=== PATIENT | male | born 1960 | race Caucasian/White ===

== ENCOUNTER 2022-08-06 08:18 | Outpatient (CLI) | payer OTHER, SELFPAY ==
[2022-08-06 16:20] LABS: Alanine Aminotransferase 44 U/L (6-50); Albumin Level 4.3 g/dL (3.5-5.1); Alkaline Phosphatase 66 U/L (38-126); Anion Gap 5 mmol/L (8-16); Aspartate Amino Transferase 41 U/L (17-59); Bilirubin,Total 0.9 mg/dL (0.2-1.3); Blood Urea Nitrogen 18 mg/dL (9-20); Calcium 8.8 mg/dL (8.4-10.2); Carbon Dioxide 31 mmol/L (22-30); Chloride 104 mmol/L (98-107); Cholesterol 156 mg/dL (0-200); Estimated Glomerular Filt Rate > 60; Glucose 81 mg/dL (65-110); HDL Direct 47 mg/dL; Potassium 3.9 mmol/L (3.4-5.0); Sodium 140 mmol/L (137-145); Triglycerides 98 mg/dL (<150)
[2022-08-06 16:48] LABS: Prostate Specific Antigen 0.6 ng/mL (< OR = 4.0)
[2022-08-06 20:24] LABS: LDL Cholesterol Direct 84 mg/dL
== END 2022-08-06 08:19 | disposition home or self-care (01) ==
LOC: ANHGOSHLAB 08:21
PROVIDERS: PCP Family Medicine; Visit Provider Family Medicine
DX: Z13.228 Encounter for screening for other metabolic disorders (principal); Z12.5 Encounter for screening for malignant neoplasm of prostate; Z13.220 Encounter for screening for lipoid disorders
CPT/HCPCS: 36415; 80053; 80061; 84153; G0103

== ENCOUNTER 2022-10-21 04:17 | Day surgery (SDC) | payer OTHER, SELFPAY ==
[2022-10-08 14:10] VITALS: BMI 32.8
[2022-10-21 07:44] VITALS: BP 134/88; PULSE 66; RESP 18; TEMP 36.1; O2SAT 97
[2022-10-21] MEDS: LACTATED RINGERS 1,000 ML 150 ML IV CONT (07:52)
--- NOTE | 2022-10-21 08:21 | WPDANESEPPF ---
Anes - Initial Pre Proc Eval Procedure: Operation Date: 10/21/22 09:15 Proposed Procedures p Screening Colonoscopy - Boby Yadav MD Date/Time: 10/21/22 08:21 Surgeon: Boby Yadav MD Pre Op Diagnosis: neoplasm screening Patient Data Age: 62 Gender: M Height: 1.73 m Weight: 93.6 kg Last Vital Signs Temp 36.1 C L 10/21/22 07:44 Pulse 66 10/21/22 07:44 Resp 18 10/21/22 07:44 BP 134/88 10/21/22 07:44 Pulse Ox 97 10/21/22 07:44 O2 Del Method Room Air 10/21/22 07:44 Allergies Allergy/AdvReac Type Severity Reaction Status Date / Time No Known Allergies Allergy Verified 10/21/22 07:43 Home Medications Medication Instructions Recorded Confirmed Type atorvastatin 10 mg tablet 10 mg PO DAILY #90 tabs 10/14/22 10/17/22 Rx diclofenac sodium 75 mg 75 mg PO BID #180 tabs 10/14/22 10/17/22 Rx tablet,delayed release triamcinolone acetonide 0.1 % 1 applic topical BID PRN rash #30 10/14/22 10/17/22 Rx topical cream grams Patient hx anesthesia problems: none Family hx anesthesia problems: none Results Review: All pre-operative results and documents have been reviewed as part of the pre-operative evaluation. [facility] Surgical History Surgical History History of right shoulder replacement (01/27/22) Family History Family History Mother , Age 75 Stroke No problems noted. Father , Age 66 [place] No problems noted. Grandparent , Unknown Age Stroke No problems noted. Grandparent , Unknown Age Black Lung No problems noted. Grandparent , Unknown Age Stroke. No problems noted. Grandparent , Unknown Age Black Lung No problems noted. Social History Social History Smoking status: Never smoker Alcohol intake: current Drinks per week: 1 Alcohol use details: SOCIAL Substance use: never Substance use type: does not use Lack of Transportation: No Lack of Food: Never True Current Housing: I Have Housing Concerned About Future Housing: No Difficulty Paying Gas/Electric Bills: No Difficulty Paying for Meds: No Currently Unemployed: No Education: High School Diploma/GED Difficulty w/ Childcare or Family Care: No Living arrangements: alone Gender identity (if verbalized by the patient): Male Spiritual care concerns: No Anes - Eval Final PreProcedure Day of Procedure 10/21/22 08:21 Patient weight: obese Heart: regular rate and rhythm Lungs: clear to auscultation Airway: Mallampati scale class II Neurological: alert and oriented Last oral intake: >/= 8 hours ASA classification: III Emergent: no Anesthetic plan: proceed Anesthesia type and monitoring: general GIVS and standard monitoring Results Review: All pre-operative results and documents have been reviewed as part of the pre-operative evaluation. Informed Consent: The patient's anesthetic plan and its attendant risks and benefits were discussed with the patient/family/POA. Questions were solicited and answers provided to the satisfaction of the patient/family/POA.
--- NOTE | 2022-10-21 08:28 | PM.HPGS ---
History of Present Illness History of Present Illness Consent: Risks, benefits, and alternatives have been discussed and questions answered. Patient agrees to proceed with procedure. Chief complaint: neoplasm screening Narrative: Gama Cueva is a 62 year old male Presents for screening colonoscopy. Patient's current weight appetite and bowel movements are normal. Patient denies abdominal pain. He has had no bleeding. Family history is noncontributory. Review of Systems Review of Systems: Review of systems noncontributory. [facility]LY [facility], [facility] Surgical History Surgical History History of right shoulder replacement (01/27/22) Family History Family History Mother , Age 75 Stroke No problems noted. Father , Age 66 [place] No problems noted. Grandparent , Unknown Age Stroke No problems noted. Grandparent , Unknown Age Black Lung No problems noted. Grandparent , Unknown Age Stroke. No problems noted. Grandparent , Unknown Age Black Lung No problems noted. Social History Social History Smoking status: Never smoker Alcohol intake: current Drinks per week: 1 Alcohol use details: SOCIAL Substance use: never Substance use type: does not use Lack of Transportation: No Lack of Food: Never True Current Housing: I Have Housing Concerned About Future Housing: No Difficulty Paying Gas/Electric Bills: No Difficulty Paying for Meds: No Currently Unemployed: No Education: High School Diploma/GED Difficulty w/ Childcare or Family Care: No Living arrangements: alone Gender identity (if verbalized by the patient): Male Spiritual care concerns: No Meds Home Medications and Allergies Home Medications Medication Instructions Recorded Confirmed Type atorvastatin 10 mg tablet 10 mg PO DAILY #90 tabs 10/14/22 10/17/22 Rx diclofenac sodium 75 mg 75 mg PO BID #180 tabs 10/14/22 10/17/22 Rx tablet,delayed release triamcinolone acetonide 0.1 % 1 applic topical BID PRN rash #30 10/14/22 10/17/22 Rx topical cream grams Allergies Allergy/AdvReac Type Severity Reaction Status Date / Time No Known Allergies Allergy Verified 10/21/22 07:43 Vital Signs Vital Signs - 24 hr 10/21/22 07:44 Temperature 97 F L Pulse Rate 66 Respiratory Rate 18 Blood Pressure 134/88 Pulse Oximetry 97 Oxygen Delivery Room Air Exam Narrative: Physical exam reveals patient to be alert. Vital signs stable. HEENT exam is unremarkable. Patient is anicteric. Lungs are clear to auscultation and percussion. Heart is without murmur or extra sounds. Abdomen bowel sounds are present soft nontender with no organomegaly. Digital external rectal exam is normal. Assessment and Plan Assessment and plan (1) Encounter for screening colonoscopy: Code(s): Z12.11 - Encounter for screening for malignant neoplasm of colon Status: Acute Assessment and Plan: Patient presents today for screening colonoscopy. He appears to be at average risk for colon polyps. Further recommendations may be given after endoscopy.
[2022-10-21 09:12] VITALS: BP 122/78; PULSE 57; RESP 20; O2SAT 99
[2022-10-21 09:22] VITALS: BP 121/81; PULSE 50; RESP 22; O2SAT 98
[2022-10-21 09:32] VITALS: BP 116/86; PULSE 54; RESP 21; O2SAT 100
== END 2022-10-21 09:36 | disposition home or self-care (01) ==
PROVIDERS: PCP Family Medicine; Visit Provider Internal Medicine Gastroenterology
PROC: 0DJD8ZZ Inspection of Lower Intestinal Tract, Via Natural or Artificial Opening Endoscopic (ICD-10-PCS; CPT 45378; principal; 2022-10-21 09:15)
DX: Z12.11 Encounter for screening for malignant neoplasm of colon (principal); K57.30 Diverticulosis of large intestine without perforation or abscess without bleeding; E66.9 Obesity, unspecified; Z68.31 Body mass index [BMI] 31.0-31.9, adult
CPT/HCPCS: 45378; J2704; J7120

== ENCOUNTER 2023-08-13 10:23 | Outpatient (CLI) | payer OTHER, SELFPAY ==
--- NOTE | ~2023-08-13 | XR_ITS ---
3 VIEWS LUMBAR SPINE Ordering provider: Bret Peterson DO History: . M25.552 - Pain in left hip WORSENING X 1 WEEK NKI . Comparison: None. FINDINGS: VERTEBRAL BODIES:Anterior loss of volume is seen in T11, T12 and L1. Otherwise, No visible acute fra cture or subluxation. Marginal osteophytes are seen. DISK SPACES: Narrowing of the disc spaces L1-L2, L3-L4 and L5-S1. Multilevel facet degenerative disea se. SOFT TISSUES: Normal. Phlebolith's are seen in the pelvis. Normal sacroiliac joints. Osteoarthritic changes in the left hip. IMPRESSION: No acute osseous abnormality lumbar spine. Anterior loss of volume in T11, T12 and L1 most likely chr onic. Consider follow up MRI lumbar spine if there is concern for spinal stenosis/neural impingement. Reviewed, dictated and finalized at location A. IMPRESSION: No acute osseous abnormality lumbar spine. Anterior loss of volume in T11, T12 and L1 most likely chronic. Consider follow up MRI lumbar spine if there is concern for spinal stenosis/adriana ral impingement.
--- NOTE | ~2023-08-13 | XR_ITS ---
AP lateral views of the left hip Clinical history: Pain Findings: No acute fracture or dislocation is seen. Osseous alignment is anatomic. There is moderate left hip joint degenerative change. Soft tissues are unremarkable. Impression: Moderate left hip joint degenerative change. Reviewed, dictated and finalized at location . Impression: Moderate left hip joint degenerative change.
== END 2023-08-13 10:24 | disposition home or self-care (01) ==
LOC: ANHIMG 10:24
PROVIDERS: PCP Family Medicine; Visit Provider Family Medicine
DX: M25.552 Pain in left hip (principal)
CPT/HCPCS: 72110; 73502

== ENCOUNTER 2023-08-31 08:08 | Outpatient (CLI) | payer OTHER, SELFPAY ==
[2023-08-31 09:06] LABS: Alanine Aminotransferase 24 U/L (6-50); Albumin Level 4.6 g/dL (3.5-5.1); Alkaline Phosphatase 71 U/L (38-126); Anion Gap 8 mmol/L (4-12); Aspartate Amino Transferase 27 U/L (17-59); Bilirubin,Total 0.9 mg/dL (0.2-1.3); Blood Urea Nitrogen 18 mg/dL (9-20); Carbon Dioxide 27 mmol/L (22-30); Chloride 105 mmol/L (98-107); Cholesterol 154 mg/dL (0-200); Estimated Glomerular Filt Rate > 60; Glucose 99 mg/dL (65-110); HDL Direct 44 mg/dL; Potassium 4.4 mmol/L (3.4-5.0); Sodium 140 mmol/L (137-145); Triglycerides 95 mg/dL (<150)
[2023-08-31 09:18] LABS: LDL Cholesterol Direct 85 mg/dL
[2023-08-31 09:35] LABS: Prostate Specific Antigen 0.7 ng/mL (< OR = 4.0)
== END 2023-08-31 08:09 | disposition home or self-care (01) ==
LOC: ANHLAB 08:09
PROVIDERS: PCP Family Medicine; Visit Provider Family Medicine
DX: Z13.228 Encounter for screening for other metabolic disorders (principal); Z12.5 Encounter for screening for malignant neoplasm of prostate; E78.00 Pure hypercholesterolemia, unspecified
CPT/HCPCS: 36415; 80053; 80061; 84153; G0103

== ENCOUNTER 2024-06-11 12:01 | Emergency (ER) | payer MEDICARE, OTHER, SELFPAY ==
--- NOTE | ~2024-06-11 | XR_ITS ---
EXAMINATION: XR chest 1V portable DATE: 06/11/2024 12:53 INDICATION: Endotracheal tube placement TECHNIQUE: 3 AP views of the chest were obtained. COMPARISON: None FINDINGS: Endotracheal tube tip 4.4 cm above the sylvia. Other airspace opacities at the left lower lung zone. Right lung remains clear. No pulmonary edema, pleural effusion or pneumothorax. The cardiomediastinal silhouette is normal. Right total shoulder arthroplasty. IMPRESSION: 1. Mild opacities in the left lower lung zone which could represent atelectasis, aspiration or pneumo gabriel. Reviewed, dictated and finalized at location A. IMPRESSION: 1. Mild opacities in the left lower lung zone which could represent atelectasis , aspiration or pneumonia.
--- NOTE | ~2024-06-11 | CT_ITS ---
EXAMINATION: 1. CT facial & cervical spine wo DATE: 06/11/2024 12:51 INDICATION: Trauma TECHNIQUE: 1. Computed tomography (CT) of the maxillofacial region and of the cervical spine were performed with out intravenous contrast. Sagittal and coronal reconstructions of both regions were obtained. Automat ed exposure control and iterative reconstruction technique were employed. The dose-length product was 681.00 mGy-cm. COMPARISON: None. FINDINGS: Maxillofacial CT: Anterior portion of the nasal bones and portion of the anterior cortez of the frontal sinuses are excl uded from the [id number] but aren't included on the subsequent CT of the head and thereby was not significantly limit evaluation. No maxillofacial fractures identified. Specifically the mandible, krystina al bones, zygomatic arches and cortez of the orbits and paranasal sinuses remain intact. Nasal septum is midline and also remains intact. There is prominent left periorbital and preseptal soft tissue swe lling. The left globe appears intact but there is proptosis with mild stranding in the intraorbital f at and asymmetric swelling of the left orbital muscles compared with the right.. The right orbit is n ormal. Moderate diffuse mucosal thickening throughout the paranasal sinuses. Mastoid air cells and mi ddle ear cavities are clear. Endotracheal tube in expected position extending into the pharynx with d istal tip along the floor of the thoracic inlet on the caudal-most cervical spine CT image. Large int raparenchymal hemorrhage in the right frontal and temporal lobes. See separate head CT report for fur ther detail. Cervical spine CT: Reversal of the normal cervical lordosis. 2 mm anterolisthesis C2 on C3 and C4 on C5. 3 mm retrolisth esis C6 on C7. Vertebral body heights are normal. No fractures. Severe disc height loss at C3-C4, C5- C6 and C6-C7. Severe uncovertebral osteoarthritis and posterior disc ossified complexes contribute to mild central canal stenosis at these levels. Mild disc height loss at the remaining cervical levels. Multilevel moderate to severe bilateral cervical facet osteoarthritis. There is moderate neural from stenosis bilaterally at C6-C7 and on the left at C3-C4 with mild neural from stenosis at the remaini ng cervical levels. Cervical soft tissues are unremarkable. IMPRESSION: 1. Prominent left periorbital soft tissue swelling with swelling of the orbital muscles and mild stra nding within the left orbit and proptosis of the intact appearing left globe. 2. No maxillofacial fractures identified. 3. Severe cervical spondylosis with no acute osseous abnormality. Reviewed, dictated and finalized at location A. IMPRESSION: 1. Prominent left periorbital soft tissue swelling with swelling of the orbital muscles and mild stranding within the left orbit and proptosis of the intact a ppearing left globe. 2. No maxillofacial fractures identified. 3. Severe cervical spondylosis with no acute osseous abnormality.
--- NOTE | ~2024-06-11 | CT_ITS ---
EXAMINATION: CT brain wo con DATE: 06/11/2024 12:49 INDICATION: Trauma TECHNIQUE: Computed tomography (CT) of the head was performed without intravenous contrast. Sagittal and coronal reconstructions were performed. The mA was adjusted according to patient size. Iterative reconstruction technique was employed. The dose-length product was 681.00 mGy-cm. COMPARISON: None FINDINGS: Partially visualized endotracheal in the oral cavity. No calvarial fracture. There is a large intrapa renchymal hemorrhage in the right frontal lobe extending to the anterior right temporal lobe which me asures 10.2 cm AP, 5.1 cm medial collateral and 4.0 cm craniocaudally. There is also blood in the occ ipital horn of the largely effaced right lateral ventricle and minimal amount in the occipital lobe o f the left lateral ventricle and small amounts in the third and fourth ventricles, the former also la rgely effaced by mass effect. The interpreting hemorrhage along with surrounding vasogenic edema resu lts in significant mass effect with both right cortical herniation and subfalcine herniation with up to 1.5 cm [id number] midline shift at the level of the septum pellucidum. There is also effacement of many of the basal cisterns. No loss of gutierrez-white matter differentiation to suggest large territo rial acute ischemic infarction. No abnormal masses identified. Mastoid air cells and middle ear cavit ies are clear. Prominent left periorbital/preseptal soft tissue swelling/hematoma. There appears to b e proptosis of the left globe which appears otherwise intact without significant post septal strandin g. Mucosal thickening in the paranasal sinuses with possible small amount of hemorrhage in the right maxillary sinus. See separate maxillofacial CT report for further detail. IMPRESSION: 1. Large right frontal and temporal lobe intraparenchymal hemorrhage with associated intraventricular hemorrhage and large amount of mass effect resulting in right uncal and prominent right to left subf alcine herniation with up to 1.[address] Dooley discussed these findings with Dr. Stanislaw castaneda at 12:58 PM. Reviewed, dictated and finalized at location A. IMPRESSION: 1. Large right frontal and temporal lobe intraparenchymal hemorrhage with assoc iated intraventricular hemorrhage and large amount of mass effect resulting in right uncal and prominent right to left subfalcine herniation with up to 1.[address] Dooley discussed these findings with Dr. Jaye castaneda at 12:58 PM.
[2024-06-11 12:01] VITALS: BP 135/99; PULSE 99; RESP 25; TEMP 36.4; O2SAT 100
[2024-06-11 12:15] VITALS: BP 170/120; PULSE 105; RESP 21
[2024-06-11] MEDS: ROCURONIUM BROMIDE 50 MG/5 ML VIAL IV PUSH (12:15)
--- NOTE | 2024-06-11 12:18 | ECG_ITS ---
Test Date: 2024-06-11 12:25:10 Measurements Intervals [place] Rate: 102 P: 51 OH: 172 QRS: 37 QRSD: 89 T: 36 QT: 366 QTc: 478 Interpretive Statements SINUS TACHYCARDIA MINIMAL Q WAVES- ANTEROLAT/HIGH LAT LEADS BORDERLINE ST ABNORMALITY- ANT/INF LEADS BORDERLINE ECG No previous ECG available for comparison Electronically Signed On 06-11-2024 14:48:32 CDT by Forest Cervantes D.O.
--- NOTE | 2024-06-11 12:18 | PC.NURSE ---
MEDS FOR INTUBATION ANITA 50 MG IVP X1
[2024-06-11 12:20] LABS: Basophils Percent Auto 0.2 % (0.2-1.2); Hematocrit 46.1 % (42.0-52.0); Hemoglobin 15.6 g/dL (14.0-18.0); Immature Granulocyte Absolute 0.07 K/mm3 (0.00-0.031); Immature Granulocyte Percent A 0.4 % (0-0.5); Lymphocytes Absolute Auto 0.57 K/mm3 (0.9-3.2); Lymphocytes Percent Auto 3.3 % (18.3-44.2); Mean Corpuscular HGB Conc 33.8 g/dl (32-36); Mean Corpuscular Hemoglobin 30.5 pg (26-34); Monocytes Absolute Auto 1.2 K/mm3 (0.1-0.6); Monocytes Percent Auto 7.1 % (2.6-8.5); Neutrophils Absolute Auto 15.3 K/mm3 (1.3-6.7); Platelet Count Result 210 k/mm3 (150-375); Red Blood Count 5.12 M/mm3 (4.6-6.20); Red Cell Distribution Width 13.5 % (11.5-14.5); White Blood Count 17.1 K/mm3 (4.5-10.0)
[2024-06-11 12:31] VITALS: BP 142/89; PULSE 97; RESP 20
--- OUTSIDE RECORDS SUMMARY | 2024-06-11 12:33 | XMS_ITS | Clinical Summary ---
Author Organization [facility] [employer] Address [address] [place] [address] Care Team Providers Care Fitting Room Attendant Name Role Phone Brent Joel MD Primary Care Provider [phone] Source Comments [facility] [employer],non-owned Affiliates and Associated Physician Practices is amultiple site organization consisting of ambulatory clinics and hospital sitesin [place], [place], [place] and [place]. This disclosure is being madepursuant to the Care Everywhere program and may not contain all information available regarding this patient. Last updated 17.[facility] [employer] Allergies No known active allergies Medications * Be aware that medications may not be up to date on this document. Alwaysverify current medications with the patient. Medication Sig Dispensed Refills Start Date End Date Status hydrocodone-acetaminop hen (NORCO) 7.5-325 MG tablet Take 1 Tab by mouth every 4 hours as needed for Pain. Active piroxicam (FELDENE) 20 MG capsule Take 1 Cap by mouth once daily. 30 Cap 5 02/08/2014 Active diclofenac sodium EC (VOLTAREN) 75 MG tablet Take 1 Tab by mouth 2 times daily 60 Tab 5 07/19/2015 Active Active Problems Problem Noted Date Diagnosed Date Back pain Family History Medical History Relation Name Comments Aneurysm Father Diabetes Father Hypertension Father Diabetes Mother Hypertension Mother SD<65(female) Mother Diabetes Sister Hypertension Sister Relation Name Status Comments Father Mother Sister Alive Social History Tobacco Use Types Packs/Day Years Used Date Smoking Tobacco: Never Smokeless Tobacco: Never Alcohol Use Standard Drinks/Week Comments No 0 (1 standard drink = 0.6 oz pur e alcohol) Sex and Gender Information Value Date Recorded Sex Assigned at Not on file Gender Identity Not on file Sexual Orientation Not on file Last Filed Vital Signs Vital Sign Reading Time Taken Comments Blood Pressure - - Pulse - - Temperature - - Respiratory Rate - - Oxygen Saturation - - Inhaled Oxygen Concentration - - Weight 104.3 kg (230 lb) 07/25/2015 1:26 PM CDT Height 172.7 cm (5' 8 ) 07/25/2015 1:26 PM CDT Body Mass Index 34.97 07/25/2015 1:26 PM CDT Plan of Treatment Health Maintenance Due Date Last Done Comments COLOGUARD (AGES 45-75) - COL ON CA SCREENING 1959 COLON MONITORING 1959 COLONOSCOPY - COLON CA SCREENING 1959 CT COLONOGRAPHY - COLON CA SCREENING 1959 Colorectal Cancer Screening 1959 FIT - COLON CA SCREENING 1959 FLEX SIG - COLON CA SCREENING 1959 LIPID TESTING 1959 HIV SCREENING 1974 HEPATITIS C SCREENING 01/24/1977 DTAP/TDAP/TD VACCINES (1 - Tdap) 1978 PNEUMOCOCCAL VACCINE 50+ (1 of 1 - PCV) 2009 ZOSTER VACCINE (1 of 2) 2009 COVID-19 VACCINE ( - 2023-2 5 season) 2023 DEPRESSION SCREENING 03/09/2024 INFLUENZA VACCINE (Season Ended) 2024 Respiratory Syncytial Virus (RSV) Vaccine Pt: or over 60 yrs (1 - 1-dose 75+ series) 2034 HEPATITIS B VACCINE Aged Out No longe r eligible based on patient's age to complete this topic HIB VACCINE Aged Out No longer eligi ble based on patient's age to complete this topic HPV VACCINE Aged Out No longer eligi ble based on patient's age to complete this topic MENINGOCOCCAL (Group B) VACC INE SHARED DECISION-MAKING Aged Out No longer eligibl e based on patient's age to complete this topic MENINGOCOCCAL GROUPS A/C/Y/W VACCINE Aged Out No longer eligible b ased on patient's age to complete this topic Care Teams Fitting Room Attendant Relationship Specialty Start Date End Date Brent Joel MD [address] [place] [address] [address] [place] [address] PCP - General Internal Medicine 01/31/14
--- OUTSIDE RECORDS SUMMARY | 2024-06-11 12:33 | XMS_ITS | Clinical Summary ---
Author Organization [facility] Address [address] [place] [id number] Care Team Providers Care Endocrinology Nurse Name Role Phone Brant Valencia MD Unavailable [phone] Mary MAYFIELD MD, Forrest Underwood Primary Care Provider Allergies No known active allergies Medications atorvastatin (LIPITOR) 10 MG tabletIndicatio ns:Hyperlipidem ia Take 1 tablet (10 mg total) by mouth daily. Indications: High Amount of Fats in the Blood 2 Active diclofenac EC (VOLTAREN) 75 MG tabletIndicatio ns:Inflammation Take 1 tablet (75 mg total) by mouth 2 (two) times daily. Indications: Inflammation 4 Active amoxicillin (AMOXIL) 500 MG tablet Take 4 tablets (2,000 mg total) by mouth once. 4 Active amoxicillin (AMOXIL) 500 MG tabletIndicatio ns:Aftercare following left hip joint replacement surgery Take 4 tablets (2,000 mg total) by mouth once as needed. About 1 hour before dental procedures. 8 tablet 1 5 Active Active Problems Problem Noted Date Diagnosed Date Primary osteoarthritis of left hip 09/28/2023 S/P arthroscopy of left shoulder 02/17/2023 Traumatic complete tear of l eft rotator cuff, subsequent encounter 02/05/2023 Impingement syndrome of left shoulder 02/05/2023 Injury of tendon of long hea d of biceps, left, initial encounter 01/16/2023 Overview (01/16/2023): Added automatically from request for surgery [id number] Traumatic incomplete tear of left rotator cuff, initial encounter 01/16/2023 Overview (01/16/2023): Added automatically from request for surgery [id number] Osteoarthritis of left acromioclavicular joint 0 11/25/2022 S/P shoulder replacement, right 01/23/2022 Hypertension 01/16/2022 Mixed hyperlipidemia 01/16/2022 Obesity, unspecified 01/16/2022 Obesity, unspecified 01/16/2022 JOHNATHAN on CPAP 01/16/2022 Thoracic aortic aneurysm without rupture 022 Overview (01/16/2022): mild aortic root prominence Arthritis 01/16/2022 Primary osteoarthritis of right shoulder 022 Encounters Date Type Department Care Team Description 04/20/2024 Telephone [facility] Family Medicine [facility] [address] [place] [address] Forrest Hernandez II, MD Follow Up Call (Received correspondence from [facility] regarding pts elevated bp. Pt was under the impression that he was seen by Dr. Hernandez yesterday and labs were ordered. There is no documentation showing he was seen yesterday. Sent to PCP for further review. ) 04/18/2024 7:40 AM [facility] Office Visit [facility] Orthopedic & Sports Medicine [facility] [address] [place] [address] Jeremiah Will MD Follow Up (Left total hip 10/16/23) 04/18/2024 Travel 04/12/2024 Orders Only [facility] Orthopedic & Sports Medicine [facility] [address] [place] [address] Jeremiah Will MD from Last 3 Months Family History Medical History Relation Comments Hypertension Brother 1 Hypertension Brother 2 Hypertension Brother 3 Hypertension Brother 4 Diabetes Father Heart Attack Father Hyperlipidemia Father No Known Problems Maternal Grandfather No Known Problems Maternal Grandmother Diabetes Mother Hyperlipidemia Mother No Known Problems Paternal Grandfather No Known Problems Paternal Grandmother Hypertension Sister Relation Status Comments Brother 1 Brother 2 Brother 3 Alive Brother 4 Alive Father Maternal Grandfather Maternal Grandmother Mother Paternal Aunt Alive Paternal Grandfather Paternal Grandmother Sister Social History Tobacco Use Types Packs/Day Years Used Date Smoking Tobacco: Never Passive Smoke Exposure: Never Smokeless Tobacco: Never Tobacco Cessation:Counseling Given: No Comments:Never Smoked Alcohol Use Standard Drinks/Week Comments Yes 3.7 (1 standard drink = 0.6 oz p ure alcohol) Social PHQ-2 Answer Date Recorded Patient Health Questionnaire-2 Score 0 04/18/2024 Sex and Gender Information Value Date Recorded Sex Assigned at Male 04/15/2024 9:04 AM [facility] Legal Sex Male 12:27 PM CDT Gender Identity Not on file Sexual Orientation Not on file Last Filed Vital Signs Vital Sign Reading Time Taken Comments Blood Pressure 141/93 04/18/2024 7:58 AM [facility] Pulse 61 04/18/2024 7:58 AM [facility] Temperature 36.6 C (97.9 F) 04/18/2024 7:53 AM [facility] Respiratory Rate 18 10/23/2023 9:51 AM CDT Oxygen Saturation 98% 04/18/2024 7:53 AM [facility] Inhaled Oxygen Concentration - - Weight 91.4 kg (201 lb 9.6 oz) 04/18/2024 7:53 A M [facility] Height 170.2 cm (5' 7 ) 04/18/2024 7:53 AM [facility] Body Mass Index 31.58 04/18/2024 7:53 AM [facility] Plan of Treatment Health Maintenance Due Date Last Done Comments Colorectal Cancer Screening Colonoscopy (10 Years) 1959 Hepatitis C 1977 DTaP, Tdap and Td Vaccines ( 1 - Tdap) 1978 COVID-19 Vaccine (4 - 2023-2 5 season) 2023 01/11/2021, 05/25/2020, 04/27/2020 Pneumococcal Vaccine: 65+ Years (2 of 2 - PCV) 01/30/2024 01/24/2021 RSV Immunization or 60+ Years (1 - 1-dose 75+ series) 2034 Pneumococcal Vaccine: Pediatrics (0 to 5 Years) and At-Risk Patients (6 to 64 Years) Aged Out 01/24/2021 No longer eligible b ased on patient's age to complete this topic Zoster Vaccines Completed 07/09/2021, 10/04/2020, 04/20/2019 PHQ-2 (Physician [place]) Completed 04/18/2024 Meningococcal B Vaccine Aged Out No l onger eligible based on patient's age to complete this topic Meningococcal Vaccine Aged Out No [place] luz eligible based on patient's age to complete this topic RSV Immunizations Under 20 Months Aged Out No longer eligible b ased on patient's age to complete this topic Medical Devices Implanted Type Area Reconciliation Accountant Device Identifier Shelf Expiration Date Model / Serial / Lot Eclipse Speedscap Implant System Implanted:Qt y: 1 on 01/27/2022 by Bill Hernández MD at [facility] [place] Right: Shoulder [employer] [id number] 07/06/2026 AR-9400-SB K / / [id number] Implant [place] Arthrex Bio Swivelock 4.75mm - [id number] Implanted:Qt y: 1 on 02/18/2023 by Bill Hernández MD at [facility] [place] Left: Shoulder [employer] [id number] 12/06/2026 AR-2324BCC / / [id number] [place] Suture [employer] Bio Swivelock 5.5mm - [id number] Implanted:Qt y: 1 on 02/18/2023 by Bill Hernández MD at [facility] [place] Left: Shoulder [employer] [id number] 08/06/2026 AR-2323BCC / / [id number] Implant [employer] [place] Bio-Corkscre w 4.5mm - [id number] Implanted:Qt y: 1 on 02/18/2023 by Bill Hernández MD at [facility] [place] Left: Shoulder [employer] [id number] 10/06/2026 AR-1927BCF -45 / / [id number] Implant [place] [employer] Bio Swivelock 4.75mm - [id number] Implanted:Qt y: 1 on 02/18/2023 by Bill Hernández MD at [facility] [place] Left: Shoulder [employer] [id number] 12/06/2026 AR-2324BCC / / [id number] Cement Full Dose - [id number] Implanted:Qt y: 1 on 01/27/2022 by Bill Hernández MD at [facility] C[place] Implant Right: Shoulder [employer] [id number] 03/08/2024 6191-1-001 / / [id number] Cement Bone Tobramycin Simplex - [id number] Implanted:Qt y: 1 on 01/27/2022 by Bill Hernández MD at [facility] C[place] Implant Right: Shoulder [employer] [id number] 03/08/2022 6197-9-001 / / [id number] Shell Acetabular Depuy 54mm - [id number] Implanted:Qt y: 1 on 10/16/2023 by Jeremiah Will MD at [facility] Hip Components Left: Hip DEPUY [id number] 07/06/2033 [id number] / / [id number] Liner Depuy Acetabular Altrx Neut 36x54 - [id number] Implanted:Qt y: 1 on 10/16/2023 by Jeremiah Will MD at [facility] Hip Components Left: Hip DEPUY [id number] 09/05/2028 [id number] / / [id number] Stem Femoral Collar Actis Duofix 6 Standard Offset Hip Sterile - [id number] Implanted:Qt y: 1 on 10/16/2023 by Jeremiah Will MD at [facility] Hip Components Left: Hip DEPUY [id number] 07/06/2033 [id number] / / [id number] Head Depuy Femoral Delta 36mm +1.5 - [id number] Implanted:Qt y: 1 on 10/16/2023 by Jeremiah Will MD at [facility] Hip Components Left: Hip DEPUY [id number] 11/07/2027 [id number] / / [id number] [facility] [place] Implanted:Qt y: 1 on 01/27/2022 by Bill Hernández MD at [facility] Shoulder Components Right: Shoulder [employer] [id number] 03/08/2026 AR-9106-03 / / [id number] Eclipse Cage Screw Implanted:Qt y: 1 on 01/27/2022 by Bill Hernández MD at [facility] Shoulder Components Right: Shoulder [employer] [id number] 04/08/2026 AR-9301-03 / / [id number] Eclipse Trunion Implanted:Qt y: 1 on 01/27/2022 by Bill Hernández MD at [facility] Shoulder Components Right: Shoulder [employer] [id number] 05/06/2026 AR-9301-45 PATIENT REGISTRAR / .[id number] Eclipse Humeral Head Implanted:Qt y: 1 on 01/27/2022 by Bill Hernández MD at [facility] Shoulder Components Right: Shoulder [employer] [id number] 11/06/2024 AR-9347-20 / / [id number] Procedures Procedure Name Priority Date/Time Associated Diagnosis Comments OXR PELVIS AP+LT HIP 2V Routine 04/18/2024 7:48 AM [facility] Aftercare following left hip joint replacement surgery from Last 3 Months Results * OXR PELVIS AP+LT HIP 2V (04/18/2024 7:48 AM [facility]) Anatomical Region Laterality Modality Pelvis, Hip Radiographic Cassidy ging Narrative 04/18/2024 8:12 AM [facility] PROCEDURE: OXR PELVIS AP+LT HIP 2V VIEWS: 3 DATE: 04/18/24 CLINICAL INDICATION: FINDINGS: Left total hip arthroplasty. No periprosthetic lucency. No fractures. Moderate degenerative change of the right hip. IMPRESSION: Total hip arthroplasty. Jeremiah Will MD GENERAL IMAGING Final Result from Last [address] [place] [id number] MEDICARE [facility] Advance Directives * Full Code (Latest Code Status on File) Date Activated Date Inactivated Comments 10/17/2023 10:30 AM * Full Code Date Activated Date Inactivated Comments 01/27/2022 3:51 PM 01/28/2022 12:29 PM Care Teams Endocrinology Nurse Relationship Specialty Start Date End Date Forrest Hernandez II, MD [address] [place] [address] PCP - General FAMILY PRACTICE 04/18/24 Brant Valencia MD [address] [facility] [address] [place] [address] CARDIOVASCULAR DISEASE 12/30/21
[2024-06-11 12:44] LABS: Alanine Aminotransferase 40 U/L (6-50); Albumin Level 4.8 g/dL (3.5-5.1); Alkaline Phosphatase 74 U/L (38-126); Anion Gap 18 mmol/L (4-12); Aspartate Amino Transferase 59 U/L (17-59); Bilirubin,Total 0.7 mg/dL (0.2-1.3); Blood Urea Nitrogen 16 mg/dL (9-20); Calcium 9.4 mg/dL (8.4-10.2); Carbon Dioxide 23 mmol/L (22-30); Chloride 100 mmol/L (98-107); Estimated CRCL calculation 97 ml/min; Estimated Glomerular Filt Rate > 60; Glucose 177 mg/dL (65-110); Potassium 4.1 mmol/L (3.4-5.0); Sodium 141 mmol/L (137-145)
--- NOTE | 2024-06-11 12:45 | PC.NURSE ---
EDP did not want a NG/OG placed at this time
[2024-06-11 12:49] LABS: Prothrombin Time 13.3 Seconds (11.1-14.7)
[2024-06-11 12:54] VITALS: BP 146/107; PULSE 77; RESP 20; O2SAT 100
--- NOTE | 2024-06-11 12:56 | ED_ITS ---
HPI - Head Injury General Chief complaint: Head Injury Stated complaint: syncopy, trauma Time Seen by Provider: 06/11/24 12:20 Source: EMS Mode of arrival: EMS Limitations: other (intubated) History of Present Illness HPI Narrative: 64-year-old with a history of hyperlipidemia, hypertension was brought in from home on nonresponsive state. Patient was found to the bathroom unresponsive for unknown period of time. Upon arrival to the ER patient still remained unresponsive with the LMA in place MD Complaint: head injury Arrival Conditions: C-spine immobilization present Mechanism of Injury: unsure Place: home Loss of Consciousness: yes Location of injury: frontal Severity: severe Related Data Allergies Allergy/AdvReac Type Severity Reaction Status Date / Time No Known Allergies Allergy Verified 04/19/24 10:15 Review of Systems 2 Review of Systems: ROS unobtainable: Yes unobtainable due to endotracheal tube PMFSH Past Medical History Medical History Family history of premature coronary artery disease Surgical History Surgical History History of right shoulder replacement (01/27/22) Family History Family History Mother , Age 75 Stroke No problems noted. Father , Age 66 [place] No problems noted. Grandparent , Unknown Age Stroke No problems noted. Grandparent , Unknown Age Black Lung No problems noted. Grandparent , Unknown Age Stroke. No problems noted. Grandparent , Unknown Age Black Lung No problems noted. Social History Social History Smoking status: Never smoker Alcohol intake: current Alcohol use details: SOCIAL Substance use: never Substance use type: does not use Lack of Transportation: No Lack of Food: Never True Current Housing: I Have Housing Concerned About Future Housing: No Difficulty Paying Gas/Electric Bills: No Difficulty Paying for Meds: No Currently Unemployed: No Education: High School Diploma/GED Difficulty w/ Childcare or Family Care: No Living arrangements: alone Gender identity (if verbalized by the patient): Male Spiritual care concerns: No Exam 2 Narrative: GENERAL: Unresponsive HEAD: Normocephalic, has laceration on the left eye brow EYES: PERRLA and EOMI.Pupils about 10 mm slow reactive ENT: Nares clear, no rhinorrhea or epistaxis. Mucous membranes moist. very weak gag reflex NECK: Supple. CHEST: Clear to auscultation. No respiratory distress. HEART: Regular rate and rhythm. No murmur heard. Normal peripheral pulses. ABDOMEN: Soft, nontender, nondistended, normal active bowel sounds. EXTREMITIES: Normal range of motion. No edema. SKIN: Warm, dry, no rash. NEURO: unresponsive Course Course Emergency Course: pt still remains unresponsive , LMA was changed to ET tube , CT scan was obtained which showed a large intraparenchymal bleed , notified pt 's family, discussed with Dr. Soto Neuro Stroke , will accept the pt to the ER , Discussed with Dr. Boss will accept the pt to the ER. Family wants all the interventions done , message has been conveyed to the [facility] team. Vital Signs Vital signs: Vital Signs Temperature 36.4 C 06/11/24 12:01 Pulse Rate 99 06/11/24 12:01 Respiratory Rate 25 H 06/11/24 12:01 Blood Pressure 135/99 H 06/11/24 12:01 Pulse Oximetry 100 06/11/24 12:01 Temperature 36.4 C 06/11/24 12:01 Pulse Rate 92 06/11/24 13:01 Respiratory Rate 22 H 06/11/24 13:01 Blood Pressure 146/107 H 06/11/24 12:54 Pulse Oximetry 100 06/11/24 12:54 Procedures Intubation Intubation #1: Intubation Date: 06/11/24 Intubation Time: 12:20 paralytic: Rocuronium Laryngoscope: fiber optic video scope Assist Device Used: fiber optic device Tube Size (cm): 7.5 Method of Intubation: orotracheal Number of Attempts: 1 Tube Secured Location: teeth (25) Tube Placement Confirmation: visualized tube passing through cords Intubation Complications: none MDM - Head Injury Differential Diagnosis Differential diagnosis: Likely closed head injury, postconcussion syndrome, subdural hematoma, concussion with loss of consciousness and other (head bleed) Medical Records Attestation: I reviewed the patient's medical records. Lab Data Attestation: I reviewed the patient's lab results. 06/11/24 12:13 06/11/24 12:13 Labs: Lab Results 06/11/24 Range/Units 12:13 WBC 17.1 H (4.5-10.0) K/mm3 RBC 5.12 (4.6-6.20) M/mm3 Hgb 15.6 (14.0-18.0) g/dL Hct 46.1 (42.0-52.0) % MCV 90.0 (80-100) fl MCH 30.5 (26-34) pg MCHC 33.8 (32-36) g/dl RDW 13.5 (11.5-14.5) % Plt Count 210 (150-375) k/mm3 MPV 10.0 (7.4-10.4) fl Immature Gran % (Auto) 0.4 (0-0.5) % Neut % (Auto) 89.0 H (45.5-73.1) % Lymph % (Auto) 3.3 L (18.3-44.2) % [place] % (Auto) 7.1 (2.6-8.5) % Eos % (Auto) 0.0 (0-4.4) % Baso % (Auto) 0.2 (0.2-1.2) % Lymph # (Auto) 0.57 L (0.9-3.2) K/mm3 [place] # (Auto) 1.2 H (0.1-0.6) K/mm3 Eos # (Auto) 0.0 (0-0.3) K/mm3 Baso # (Auto) 0.0 (0.0-0.1) K/mm3 Abs Immat Gran (auto) 0.07 H (0.00-0.031) K/mm3 Absolute Neuts (auto) 15.3 H (1.3-6.7) K/mm3 Absolute Nucleated RBC 0.000 (0.0-0.012) K/mm3 Nucleated RBC % 0.0 (0.0-0.2) % PT 13.3 (11.1-14.7) Seconds INR 1.0 APTT 25.0 (22.3-36.8) Seconds Sodium 141 (137-145) mmol/L Potassium 4.1 (3.4-5.0) mmol/L Chloride 100 (98-107) mmol/L Carbon Dioxide 23 (22-30) mmol/L Anion Gap 18 H (4-12) mmol/L BUN 16 (9-20) mg/dL Creatinine 0.70 (0.7-1.3) mg/dL Estim Creat Clear Calc 97 ml/min Estimated GFR > 60 (59 - ) Glucose 177 H (65-110) mg/dL Calcium 9.4 (8.4-10.2) mg/dL Total Bilirubin 0.7 (0.2-1.3) mg/dL AST 59 (17-59) U/L ALT 40 (6-50) U/L Alkaline Phosphatase 74 (38-126) U/L Total Protein 8.0 (6.3-8.2) g/dL Albumin 4.8 (3.5-5.1) g/dL Blood Type A Negative Antibody Screen Pending Imaging Data Radiologist's impression: ITS Impressions Head CT 06/11/24 12:57 IMPRESSION: 1. Large right frontal and temporal lobe intraparenchymal hemorrhage with associated intraventricular hemorrhage and large amount of mass effect resulting in right uncal and prominent right to left subfalcine herniation with up to 1.[address] Dooley discussed these findings with Dr. Jaye castaneda at 12:58 PM. Chest X-Ray 06/11/24 13:08 IMPRESSION: 1. Mild opacities in the left lower lung zone which could represent atelectasis, aspiration or pneumonia. ECG Data EKG #1: ECG completion date: 06/11/24 ECG completion time: 12:25 EKG Interpretation: tachycardia (102), no ectopy, no ST changes, normal QRS and normal QT Discharge Plan Discharge Clinical Impression: Acute intracerebral hemorrhage Patient Disposition: Acute Care Hospital Condition: Critical Patient Language: Salvadorean Prescriptions: No Action triamcinolone acetonide 0.1 % cream 1 applic topical BID PRN (Reason: rash) Qty: 30 0RF diclofenac sodium 75 mg tablet,delayed release (DR/EC) 75 mg PO BID Qty: 180 1RF atorvastatin 10 mg tablet 10 mg PO DAILY Qty: 90 1RF valacyclovir 1 gram tablet 500 mg PO DAILY Qty: 100 3RF Rx Instructions: daily for suppression. May take q12 hours for 3 days for acute genital herpes outbreaks or 2000mg q 12 hours times one day for oral herpes outbreaks. Follow-up/Referrals: Julian Rebolledo, [Primary Care Provider] - Time of Disposition: 12:57
[2024-06-11 13:00] VITALS: PULSE 78; RESP 23
[2024-06-11] MEDS: FENTANYL 2,500MCG/NS250ML(*CRX 2,500 MCG/250 ML BAG IV CONT (13:00)
[2024-06-11 13:01] VITALS: PULSE 92; RESP 22
[2024-06-11] MEDS: RAPID SEQUENCE INTUBATION KIT 1 EACH (13:01)
[2024-06-11] MEDS: MIDAZOLAM 100MG/NS 100ML(*CRX) 100 MG/100 ML BAG IV CONT (13:01)
[2024-06-11] MEDS: SODIUM CHLORIDE 0.9% IV 1,000 ML 999 ML IV CONT (13:01)
--- NOTE | 2024-06-11 13:35 | PC.NURSE ---
pt has midazolam and fentanyl drips running while being transported to [facility] for intubation sedation
--- NOTE | 2024-06-11 13:38 | PC.NURSE ---
for midazolam and fentanyl drips, the papers were filled out with a sponsorship manager them and tubed to pharmacy
== END 2024-06-11 13:32 | disposition short-term general hospital (02) ==
PROVIDERS: Emergency Provider Family Medicine; PCP Internal Medicine
DX: S06.349A Traumatic hemorrhage of right cerebrum with loss of consciousness of unspecified duration, initial encounter (principal); I10 Essential (primary) hypertension; E78.5 Hyperlipidemia, unspecified; Z96.611 Presence of right artificial shoulder joint; R00.0 Tachycardia, unspecified; R94.31 Abnormal electrocardiogram [ECG] [EKG]; W18.2XXA Fall in (into) shower or empty bathtub, initial encounter
CPT/HCPCS: 31500; 36415; 51702; 70450; 70486; 71045; 72125; 80053; 85025; 85610; 85730; 86850; 86900; 86901; 93005; 96361; 96374; 96375; 99285; J2250; J3010; J7030